=== PATIENT | male | born 1965 | race Caucasian/White ===

== ENCOUNTER → 2017-09-11 10:51 | Outpatient (CLI) | payer OTHER ==
[2017-09-11 11:43] LABS: ALBUMIN 3.6 g/dL (3.4-5.0); BILIRUBIN - DIRECT 0.13 mg/dL (0.00-0.30); BILIRUBIN - INDIRECT 0.27 mg/dL (0.00-1.00); BILIRUBIN - TOTAL 0.4 mg/dL (0.2-1.3); PROTEIN - SERUM 7.2 g/dL (6.4-8.2)
== END | disposition home or self-care (01) ==
LOC: D.LAB 10:51
PROVIDERS: Pediatrics
DX: Z02.71 Encounter for disability determination (principal)

== ENCOUNTER 2019-12-05 11:02 | Emergency (ER) | payer OTHER ==
[~2019-12-05] VITALS: Ht 180.3 cm; Wt 81.8 kg
[2019-12-05 11:25] VITALS: Ht 180.3 cm; Wt 81.8 kg
[2019-12-05] MEDS ORDERED: DICLOFENAC SODI50 MG PO (13:59)
[2019-12-05] MEDS ORDERED: AUGMENTIN 875-11 TAB PO (13:59)
[2019-12-05 14:16] VITALS: BP 148/86
== END 2019-12-05 14:17 | disposition home or self-care (01) ==
LOC: D.ER 11:02
DX: S81.802A Unspecified open wound, left lower leg, initial encounter (principal); W34.00XA Accidental discharge from unspecified firearms or gun, initial encounter; Y93.9 Activity, unspecified; Y92.9 Unspecified place or not applicable